=== PATIENT | male | born 1980 | race Two or more races ===

== ENCOUNTER 2019-07-20 06:12 | Emergency (ER) | payer MEDICAID, OTHER ==
[~2019-07-20] VITALS: Ht 165.1 cm; Wt 61.4 kg
[2019-07-20] MEDS ORDERED: morphine 4 MG/ML inj SYRINge IV ONE ×3 (06:25→06:50)
[2019-07-20] MEDS ORDERED: ondansetron/PF 4mg/2ml inj IV ONE (06:25)
[2019-07-20] MEDS ORDERED: normal saline 1000ml 1,000 ML IV ONE (07:00)
[2019-07-20 07:05] LABS: BASOPHILS # (AUTO) 0.1 X10'3 (0-0.2); BASOPHILS % (AUTO) 0.8 % (0-1); EOSINOPHILS # (AUTO) 0.3 X10'3 (0-0.9); EOSINOPHILS % (AUTO) 3.6 % (0-6); HEMATOCRIT 45.6 % (42.0-52.0); HEMOGLOBIN 15.4 g/dl (14.0-17.9); LYMPHOCYTES # (AUTO) 2.5 X10'3 (1.1-4.8); LYMPHOCYTES % (AUTO) 32.1 % (21-51); MEAN CORPUSCULAR HGB CONC 33.8 g/dL (33.0-36.5); MEAN CORPUSCULAR VOLUME 85.9 FL (78-98); MEAN PLATELET VOLUME 8.5 FL (7.4-10.4); MONOCYTES # (AUTO) 0.5 X10'3 (0-0.9); MONOCYTES % (AUTO) 5.9 % (2-12); NEUTROPHILS # (AUTO) 4.5 X10'3 (1.8-7.7); NEUTROPHILS % (AUTO) 57.6 % (42-75); PLATELET COUNT 273 X10'3 (140-440); RED BLOOD COUNT 5.31 X10'6 (4.70-6.10); RED CELL DISTRIBUTION WIDTH 13.9 % (11.5-14.5); WHITE BLOOD COUNT 7.8 X10'3 (4.5-11.0)
[2019-07-20 07:12] LABS: ALANINE AMINOTRANSFERASE 30 U/L (12-78); ALBUMIN 3.8 G/DL (3.4-5.0); ALBUMIN/GLOBULIN RATIO 1.1 (1.1-1.5); ALKALINE PHOSPHATASE 99 IU/L (46-116); ANION GAP 9 (8-16); ASPARTATE AMINO TRANSFERASE 33 U/L (10-37); BILIRUBIN,TOTAL 0.2 MG/DL (0.1-1.0); BLOOD UREA NITROGEN 18 MG/DL (7-18); BUN/CREATININE RATIO 17.1 (5.4-32.0); CALCIUM 8.6 MG/DL (8.5-10.1); CHLORIDE 105 MMOL/L (99-107); CREATININE 1.05 MG/DL (0.60-1.10); GLUCOSE 162 MG/DL (70-104); POTASSIUM 3.7 MMOL/L (3.5-5.1); SODIUM 139 MMOL/L (135-145); TOTAL CARBON DIOXIDE 25.3 MMOL/L (24-32); TOTAL PROTEIN 7.3 G/DL (6.4-8.2); eGFR 79 ML/MIN
[2019-07-20 07:15] LABS: LIPASE 239 U/L (73-393); TROPONIN I < 0.04 NG/ML (0.0-0.05)
[2019-07-20] MEDS ORDERED: ketorolac trometh. 30mg/ml inj. IV ONE (08:05)
[2019-07-20] MEDS ORDERED: BISA-155 PO (08:06)
[2019-07-20] MEDS ORDERED: POLY119P2 PO (08:06)
[2019-07-20] MEDS ORDERED: bisacodyl 5mg tablet.DR PO ONE (08:10)
[2019-07-20 08:23] VITALS: BP 101/71
== END 2019-07-20 08:27 | disposition home or self-care (01) ==
LOC: ER 06:14
DX: K59.00 Constipation, unspecified (principal); R10.11 Right upper quadrant pain; R11.2 Nausea with vomiting, unspecified; Z79.899 Other long term (current) drug therapy; Z87.19 Personal history of other diseases of the digestive system
CPT/HCPCS: 36415; 71045; 74176; 76700; 80053; 83605; 83690; 84484; 85025; 96361; 96374; 96375; 99284; J1885; J2270; J2405; J7030

== ENCOUNTER 2019-07-21 00:55 | Observation (INO) | payer MEDICAID, OTHER ==
[~2019-07-21] VITALS: Ht 167.6 cm; Wt 63.6 kg
[~2019-07-21 00:55] MED LIST: BISA-155 PO; POLY119P2 PO
[2019-07-21] MEDS ORDERED: morphine 2 MG/ML inj. syringe IV PRN ×3 (02:10→05:40)
[2019-07-21] MEDS ORDERED: normal saline 1000ML IV soln IVB ONE (02:10)
[2019-07-21] MEDS ORDERED: ketorolac tromethamine 15mg/ml inj. IV ONE (02:10)
[2019-07-21] MEDS ORDERED: dicyclomine 10 MG capsule PO ONE (02:10)
[2019-07-21] MEDS ORDERED: proCHLORperazine 10 MG/2 ml inj IV ONE (02:10)
[2019-07-21 02:52] LABS: BASOPHILS % (AUTO) 0.4 % (0-1); EOSINOPHILS % (AUTO) 0.4 % (0-6); HEMATOCRIT 44.4 % (42.0-52.0); HEMOGLOBIN 14.9 g/dl (14.0-17.9); LYMPHOCYTES # (AUTO) 0.9 X10'3 (1.1-4.8); LYMPHOCYTES % (AUTO) 7.8 % (21-51); MEAN CORPUSCULAR HEMOGLOBIN 28.9 PG (27.0-31.0); MEAN CORPUSCULAR HGB CONC 33.5 g/dL (33.0-36.5); MEAN CORPUSCULAR VOLUME 86.4 FL (78-98); MEAN PLATELET VOLUME 8.6 FL (7.4-10.4); MONOCYTES # (AUTO) 0.4 X10'3 (0-0.9); MONOCYTES % (AUTO) 3.6 % (2-12); NEUTROPHILS # (AUTO) 9.8 X10'3 (1.8-7.7); NEUTROPHILS % (AUTO) 87.8 % (42-75); PLATELET COUNT 231 X10'3 (140-440); RED BLOOD COUNT 5.15 X10'6 (4.70-6.10); RED CELL DISTRIBUTION WIDTH 13.4 % (11.5-14.5); WHITE BLOOD COUNT 11.1 X10'3 (4.5-11.0)
[2019-07-21 03:01] LABS: ALANINE AMINOTRANSFERASE 152 U/L (12-78); ALBUMIN 3.8 G/DL (3.4-5.0); ALBUMIN/GLOBULIN RATIO 1.1 (1.1-1.5); ALKALINE PHOSPHATASE 120 IU/L (46-116); ANION GAP 7 (8-16); ASPARTATE AMINO TRANSFERASE 183 U/L (10-37); BILIRUBIN,TOTAL 1.3 MG/DL (0.1-1.0); BLOOD UREA NITROGEN 12 MG/DL (7-18); BUN/CREATININE RATIO 12.4 (5.4-32.0); CALCIUM 9.1 MG/DL (8.5-10.1); CHLORIDE 103 MMOL/L (99-107); CREATININE 0.97 MG/DL (0.60-1.10); GLUCOSE 125 MG/DL (70-104); LIPASE 191 U/L (73-393); MAGNESIUM 1.9 MG/DL (1.5-2.4); POTASSIUM 4.2 MMOL/L (3.5-5.1); SODIUM 138 MMOL/L (135-145); TOTAL CARBON DIOXIDE 28.2 MMOL/L (24-32); TOTAL PROTEIN 7.4 G/DL (6.4-8.2); eGFR 86 ML/MIN
[2019-07-21] MEDS ORDERED: piperacillin/tazo 3.375gm/50ml 50 ML IV ONE (03:40)
[2019-07-21] MEDS ORDERED: ondansetron/PF 4mg/2ml inj IV PRN (05:40)
[2019-07-21] MEDS ORDERED: HYDROcodone/acetaminophen 5mg/325mg tablet PO PRN (05:40)
[2019-07-21] MEDS ORDERED: acetaminophen 325mg tablet PO PRN ×2 (05:40)
[2019-07-21] MEDS ORDERED: mag hydrox/Alum hydrox/simeth 30ml oral suspension PO PRN (05:40)
[2019-07-21] MEDS ORDERED: sincalide inj 1.3 MCG in normal saline 50ml IV soln 50 ML IV ONE (05:40)
[2019-07-21] MEDS ORDERED: magnesium hydroxide 30ml (MOM) UD suspension PO PRN (05:40)
[2019-07-21] MEDS: normal saline 1000ml 1,000 ML IV SCH ×3 (05:54→23:26)
[2019-07-21 07:57] VITALS: BP 96/51
[2019-07-21] MEDS: piperacillin/tazo 4.5gm/100ml 100 ML IV SCH ×3 (08:10→23:22)
[2019-07-21 11:00] VITALS: BP 95/41
[2019-07-21] MEDS ORDERED: FLU VACC QS2019-20 36MOS UP/PF 60 MCG/0.5 ML SYRINGE IMVAC ONE (13:40)
[2019-07-21 18:00] VITALS: BP 95/61
--- NOTE | 2019-07-21 18:25 | NUR ---
Problems reprioritized. Patient report given, questions answered & plan of care reviewed with ELENA Jung.
[2019-07-21] MEDS: lactobacillus rhamnosus 10,000 MMU CELLS/CAPSULE PO SCH (19:49)
--- NOTE | 2019-07-21 19:59 | NUR ---
Patient in room [facility]. I have received report from ELENA Calixto and had the opportunity to ask questions and assume patient care. Addendum: 07/21/19 at 1999 by Margaret Mondragon RN Amended: Links added.
[2019-07-22] VITALS: BP 88/48
[2019-07-22 00:55] VITALS: BP 94/58
[2019-07-22 05:27] LABS: EOSINOPHILS # (AUTO) 0.2 X10'3 (0-0.9); EOSINOPHILS % (AUTO) 5.2 % (0-6); HEMATOCRIT 39.2 % (42.0-52.0); HEMOGLOBIN 13.4 g/dl (14.0-17.9); LYMPHOCYTES # (AUTO) 1.7 X10'3 (1.1-4.8); MEAN CORPUSCULAR HEMOGLOBIN 29.2 PG (27.0-31.0); MEAN CORPUSCULAR HGB CONC 34.2 g/dL (33.0-36.5); MEAN CORPUSCULAR VOLUME 85.3 FL (78-98); MEAN PLATELET VOLUME 8.4 FL (7.4-10.4); MONOCYTES # (AUTO) 0.4 X10'3 (0-0.9); MONOCYTES % (AUTO) 7.7 % (2-12); NEUTROPHILS # (AUTO) 2.4 X10'3 (1.8-7.7); NEUTROPHILS % (AUTO) 50.1 % (42-75); PLATELET COUNT 216 X10'3 (140-440); RED BLOOD COUNT 4.59 X10'6 (4.70-6.10); RED CELL DISTRIBUTION WIDTH 13.7 % (11.5-14.5); WHITE BLOOD COUNT 4.8 X10'3 (4.5-11.0)
[2019-07-22 05:41] LABS: ALANINE AMINOTRANSFERASE 330 U/L (12-78); ALBUMIN 2.9 G/DL (3.4-5.0); ALKALINE PHOSPHATASE 126 IU/L (46-116); ANION GAP 7 (8-16); ASPARTATE AMINO TRANSFERASE 155 U/L (10-37); BILIRUBIN,TOTAL 0.8 MG/DL (0.1-1.0); BLOOD UREA NITROGEN 8 MG/DL (7-18); BUN/CREATININE RATIO 7.6 (5.4-32.0); CALCIUM 8.1 MG/DL (8.5-10.1); CHLORIDE 110 MMOL/L (99-107); CREATININE 1.05 MG/DL (0.60-1.10); GLUCOSE 104 MG/DL (70-104); POTASSIUM 4.5 MMOL/L (3.5-5.1); SODIUM 143 MMOL/L (135-145); TOTAL CARBON DIOXIDE 26.5 MMOL/L (24-32); TOTAL PROTEIN 5.8 G/DL (6.4-8.2); eGFR 79 ML/MIN
--- NOTE | 2019-07-22 06:12 | NUR ---
Problems reprioritized. Patient report given, questions answered & plan of care reviewed with ELENA Jung.
[2019-07-22 07:00] VITALS: BP 86/52
[2019-07-22] MEDS: lactobacillus rhamnosus 10,000 MMU CELLS/CAPSULE PO SCH (07:25)
[2019-07-22] MEDS: piperacillin/tazo 4.5gm/100ml 100 ML IV SCH ×2 (07:25→08:00)
[2019-07-22 08:19] LABS: HBSAG SCREEN Negative (Negative); HEP A AB, IGM Negative (Negative); HEP B CORE AB, IGM Negative (Negative); HEPATITIS C ANTIBODY <0.1 s/co ratio (0.0-0.9)
[2019-07-22 11:00] VITALS: BP 94/62
[2019-07-22] MEDS: normal saline 1000ml 1,000 ML IV SCH (11:40)
--- NOTE | 2019-07-22 13:00 | NUR ---
Patient discharged home via friend and taken from unit via wheelchair with x1 staff. Patient alert, oriented and in no apparent distress at time of discharge. Patient PIV removed with cannula intact. Patient discharge instructions gone over with patient with a pashto speaker. Patient was encouraged to follow up with PCP and a surgeon once back in [facility] to address his gallbladder. Patient stated an understanding of the instructions and stated that he did not have any questions. Patient took all belongings with him including discharge instructions. Patient was not given any new prescriptions at this time.
== END 2019-07-22 13:10 | disposition home or self-care (01) ==
LOC: ER 00:56 → ED HOLD 05:40 → SUR 3N 08:21
PROVIDERS: ADMIT Hospitalist; ATTEND Internal Medicine
DX: R10.31 Right lower quadrant pain (principal); R78.4 Finding of other drugs of addictive potential in blood; K81.9 Cholecystitis, unspecified; R74.0 Nonspecific elevation of levels of transaminase and lactic acid dehydrogenase [LDH]; Z23 Encounter for immunization
CPT/HCPCS: 36415; 74018; 76705; 80053; 80074; 83690; 83735; 85025; 87081; 90471; 96365; 96366; 96375; 99284; G0378; J0780; J1885; J2270; J2543; J2805; J7030; Q2037